=== PATIENT | female | born 1955 | race Two or more races ===

== ENCOUNTER 2024-04-13 06:00 | Day surgery (SDC) | payer OTHER ==
[2024-04-12 13:20] LABS: INR 0.97; PARTIAL THROMBOPLASTIN TIME 24.7 SECONDS (22.0-34.0); PROTHROMBIN TIME 9.8 SECONDS (9.0-11.5)
[2024-04-13] MEDS ORDERED: CEFAZOLIN SODIUM 1,000 MG VIAL ONE (13:18)
[2024-04-13] MEDS ORDERED: CEFAZOLIN SODIUM 1,000 MG VIAL IV ONE (14:30)
[2024-04-13] MEDS ORDERED: SUGAMMADEX SODIUM 200 MG/2 ML VIAL IV ONE ×2 (15:56→16:30)
== END 2024-04-13 17:40 | disposition home or self-care (01) ==
LOC: CIR.AMB 06:00
PROVIDERS: ATTEND Surgery
DX: K80.20 Calculus of gallbladder without cholecystitis without obstruction (principal); E11.9 Type 2 diabetes mellitus without complications; I10 Essential (primary) hypertension; E03.9 Hypothyroidism, unspecified